=== PATIENT | male | born 1995 | race Caucasian/White ===

== ENCOUNTER 2024-11-05 00:58 | Emergency (ER) | payer MEDICAID ==
[~2024-11-05] VITALS: Ht 185.4 cm; Wt 77.0 kg
[2024-11-05 01:00] VITALS: TEMP 98.4
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
[2024-11-05] MEDS ORDERED: GABA300C PO (01:20)
[2024-11-05 01:32] VITALS: BP 124/87; PULSE 87; O2SAT 100
[2024-11-05 01:43] VITALS: RESP 14
[2024-11-05] MEDS: oxyCODONE IR 5mg (immed. release) tablet PO ONE (01:43)
[2024-11-05] MEDS: ondansetron 4mg rapidly disintigrating tab PO ONE (01:44)
== END 2024-11-06 06:36 | disposition home or self-care (01) ==
LOC: ER 00:59
DX: M79.2 Neuralgia and neuritis, unspecified (principal); Z79.899 Other long term (current) drug therapy
CPT/HCPCS: 99284